=== PATIENT | female | born 1970 | race Caucasian/White ===

== ENCOUNTER → 2017-08-14 | Outpatient (CLI) | payer OTHER ==
[2017-08-14 18:42] LABS: ALB/GLOB RATIO 0.9 (0.9-2); ALKALINE PHOSPHATASE 131 U/L (45-117); ALT/SGPT 24 U/L (12-78); AST/SGOT 16 U/L (15-37); BLOOD UREA NITROGEN 10 mg/dl (7-18); BUN/CREATININE RATIO 10.9 (10-20); CALCIUM 8.6 mg/dl (8.5-10.1); CARBON DIOXIDE 28 mmol/L (21-32); CHLORIDE 102 mmol/L (98-107); CHOLESTEROL 261 mg/dl (0-200); CHOLESTEROL/HDL RATIO 7.7; CREATININE 0.89 mg/dl (0.60-1.20); HDL CHOLESTEROL 34 mg/dl; POTASSIUM 3.8 mmol/L (3.5-5.1); SODIUM 136 mmol/L (136-145); TRIGLYCERIDES 440 mg/dl (0-150)
[2017-08-14 19:08] LABS: BETA-HYDROXYBUTYRATE 0.95 mg/dL (0.2-2.81)
[2017-08-14 20:01] LABS: GLUCOSE 388 mg/dl (70-99)
[2017-08-15 06:41] LABS: ESTIMATED AVERAGE GLUCOSE 358 mg/dl; HA1C FLAG Normal (Normal)
== END | disposition home or self-care (01) ==
LOC: C.LABPBG 15:24
PROVIDERS: ATTEND Physician Assistant
DX: Z00.00 Encounter for general adult medical examination without abnormal findings (principal); E11.9 Type 2 diabetes mellitus without complications

== ENCOUNTER → 2017-08-31 | Outpatient (CLI) | payer OTHER ==
[2017-08-31 18:39] LABS: BLOOD UREA NITROGEN 11 mg/dl (7-18); BUN/CREATININE RATIO 15.7 (10-20); CALCIUM 9.2 mg/dl (8.5-10.1); CARBON DIOXIDE 29 mmol/L (21-32); CHLORIDE 102 mmol/L (98-107); CREATININE 0.72 mg/dl (0.60-1.20); GLUCOSE 163 mg/dl (70-99); POTASSIUM 3.8 mmol/L (3.5-5.1); SODIUM 140 mmol/L (136-145)
== END | disposition home or self-care (01) ==
LOC: C.LABPBG 13:52
PROVIDERS: ATTEND Physician Assistant
DX: I10 Essential (primary) hypertension (principal)

== ENCOUNTER → 2017-12-02 | Outpatient (CLI) | payer OTHER ==
--- NOTE | 2017-12-02 09:47 | DIAGNOSTIC IMAGING REPORT ---
C-SPINE ROUTINE 4 OR 5 VIEWS CLINICAL HISTORY: Radicular pain of right upper extremity. COMPARISON STUDY: No previous studies for comparison. FINDINGS: Alignment of the cervical spine is anatomic. Vertebral body heights are maintained. There is mild disc space narrowing and osteophytosis at C5-C6. There is mild multilevel bony neural foraminal narrowing. There is no abnormality of the prevertebral soft tissues. There is no fracture. IMPRESSION: 1. No cervical spine fracture. 2. Mild disc space narrowing and osteophytosis at C5-C6. 3. Mild multilevel bony neural foraminal narrowing. Electronically signed by: Jarod Sanders M.D. 12/02/2017 9:46 AM Dictated Date/Time: 12/02/2017 9:45 AM
--- NOTE | 2017-12-02 10:08 | DIAGNOSTIC IMAGING REPORT ---
R EXTREMITY NONVASCULAR LIMITED HISTORY: 47 years-old Female MASS SUBCEUT FAT ON R UPPER BACK palpable mass of the subcutaneous right upper back COMPARISON: None available TECHNIQUE: Multiple real-time sonographic images of the subcutaneous right upper back were obtained assessing grayscale appearance and color flow FINDINGS/IMPRESSION: Within the area of concern within the right upper back subcutaneous tissues there is an ill-defined ovoid lesion in a parallel orientation to the skin surface which is isoechoic to adjacent subcutaneous fat measuring 2.2 x 1.6 x 0.7 cm suggesting probable subcutaneous lipoma without definite internal vascularity identified. The above report was generated using voice recognition software. It may contain grammatical, syntax or spelling errors. Electronically signed by: Reji Garcia M.D. 12/02/2017 10:06 AM Dictated Date/Time: 12/02/2017 10:05 AM
== END | disposition home or self-care (01) ==
LOC: C.ULTR 08:53
PROVIDERS: ATTEND Physician Assistant
DX: M79.2 Neuralgia and neuritis, unspecified (principal); R22.2 Localized swelling, mass and lump, trunk

== ENCOUNTER → 2017-12-04 | Outpatient (CLI) | payer OTHER ==
[2017-12-04 13:56] LABS: BLOOD UREA NITROGEN 11 mg/dl (7-18); CALCIUM 8.9 mg/dl (8.5-10.1); CARBON DIOXIDE 28 mmol/L (21-32); CREATININE 0.73 mg/dl (0.60-1.20); GLUCOSE 175 mg/dl (70-99); POTASSIUM 3.7 mmol/L (3.5-5.1); SODIUM 137 mmol/L (136-145)
[2017-12-04 14:09] LABS: HEMOGLOBIN A1C 8.9 % (4.5-5.6)
== END | disposition home or self-care (01) ==
LOC: C.LABPBG 08:23
PROVIDERS: ATTEND Physician Assistant
DX: E11.9 Type 2 diabetes mellitus without complications (principal); R00.2 Palpitations

== ENCOUNTER → 2017-12-31 | Outpatient (CLI) | payer OTHER | END | disposition home or self-care (01) | LOC: C.PATHSPEC 17:48 | PROVIDERS: ATTEND Surgery | DX: R22.2 Localized swelling, mass and lump, trunk (principal) ==